=== PATIENT | male | born 1965 | race Asian ===

== ENCOUNTER 2018-05-25 11:51 | Outpatient (CLI) | payer OTHER ==
[~2018-05-25 11:51] MED LIST: ASA FREE160 MG PO; LEVEMIR SC; WARF5TAB6 PO; WARFARIN6 MG PO
[2018-05-25] MEDS ORDERED: ELIQUIS5 MG PO (12:12)
[2018-05-25] MEDS ORDERED: INSU100I2 SC (12:12)
[2018-05-25] MEDS ORDERED: INSUINJ20 SC (12:13)
== END 2018-05-25 11:57 | disposition short-term general hospital (02) ==
LOC: AMB 11:51
DX: R07.89 Other chest pain (principal)
CPT/HCPCS: A0425; A0427

== ENCOUNTER 2018-05-25 11:59 | Emergency (ER) | payer OTHER ==
[~2018-05-25] VITALS: Ht 182.9 cm; Wt 129.3 kg
[2018-05-25 12:07] VITALS: TEMP 98.1
[2018-05-25] MEDS ORDERED: ELIQUIS5 MG PO (12:12)
[2018-05-25] MEDS ORDERED: INSU100I2 SC (12:12)
[2018-05-25] MEDS ORDERED: INSUINJ20 SC (12:13)
[2018-05-25 12:22] LABS: PLATELET COUNT 212 K/uL (142-355)
[2018-05-25 12:29] LABS: POTASSIUM 4.4 mmol/L (3.6-5.2); SODIUM 134 mmol/L (136-145)
[2018-05-25 12:51] VITALS: BP 126/80
== END 2018-05-25 13:13 | disposition short-term general hospital (02) ==
LOC: ED 11:59
PROVIDERS: Family Medicine
DX: R07.89 Other chest pain (principal); T82.897A Other specified complication of cardiac prosthetic devices, implants and grafts, initial encounter
CPT/HCPCS: 36415; 80053; 82550; 82553; 84484; 85027; 93005; 99284

== ENCOUNTER 2018-09-13 09:52 | Outpatient (CLI) | payer OTHER ==
[~2018-09-13 09:52] MED LIST changes: +ELIQUIS5 MG PO; +INSU100I2 SC; +INSUINJ20 SC
== END 2018-09-13 09:57 | disposition short-term general hospital (02) ==
LOC: AMB 09:52
DX: R41.82 Altered mental status, unspecified (principal); W18.39XA Other fall on same level, initial encounter; Y93.89 Activity, other specified; Y92.89 Other specified places as the place of occurrence of the external cause
CPT/HCPCS: A0425; A0427

== ENCOUNTER 2018-09-13 10:07 | Emergency (ER) | payer OTHER ==
[~2018-09-13] VITALS: Ht 182.9 cm; Wt 129.3 kg
[2018-09-13 11:00] LABS: POTASSIUM 4.6 mmol/L (3.6-5.2); SODIUM 131 mmol/L (136-145)
[2018-09-13 11:20] LABS: PLATELET COUNT 220 K/uL (142-355)
[2018-09-13 13:54] VITALS: BP 114/60
== END 2018-09-13 13:54 | disposition home or self-care (01) ==
LOC: ED 10:07
PROVIDERS: Emergency Medicine
DX: R07.89 Other chest pain (principal)
CPT/HCPCS: 36415; 80053; 80307; 80320; 81000; 82550; 83880; 84484; 85027; 93005; 99284

== ENCOUNTER 2018-09-13 16:12 | Outpatient (CLI) | payer OTHER | END 2018-09-13 16:23 | disposition short-term general hospital (02) | LOC: AMB 16:12 | DX: T50.901A Poisoning by unspecified drugs, medicaments and biological substances, accidental (unintentional), initial encounter (principal); Y92.018 Other place in single-family (private) house as the place of occurrence of the external cause | CPT/HCPCS: A0425; A0427 ==

== ENCOUNTER 2018-09-13 16:26 | Emergency (ER) | payer OTHER ==
[~2018-09-13] VITALS: Ht 182.9 cm; Wt 129.3 kg
[2018-09-13 17:17] LABS: PLATELET COUNT 193 K/uL (142-355)
[2018-09-13 17:27] LABS: POTASSIUM 3.7 mmol/L (3.6-5.2); SODIUM 135 mmol/L (136-145)
[2018-09-16] MEDS ORDERED: LANTUS100 UNIT/M SC (14:54)
[2018-09-16] MEDS ORDERED: INSUINJ47 SC (14:55)
[2018-09-16] MEDS ORDERED: LEVO-T25 MCG PO (15:42)
[2018-09-16] MEDS ORDERED: GABA400C2 PO (15:42)
[2018-09-16] MEDS ORDERED: CALAN SR120 MG PO (15:42)
[2018-09-16] MEDS ORDERED: PRAMIPEXOLE0.25 MG PO (15:43)
[2018-09-16] MEDS ORDERED: CYCLOBENZAPRINE5 MG PO (15:44)
[2018-09-19 15:50] VITALS: BP 142/87; TEMP 98.7
== END 2018-09-19 15:50 | disposition other institution (70) ==
LOC: ED 16:28
PROVIDERS: Emergency Medicine; Family Medicine
DX: R45.851 Suicidal ideations (principal); T45.2X2A Poisoning by vitamins, intentional self-harm, initial encounter
CPT/HCPCS: 36415; 80048; 80053; 80307; 80320; 80329; 82550; 82553; 82962; 84484; 85027; 93005; 96372; 99285; J1815; J2405

== ENCOUNTER 2018-10-06 23:30 | Outpatient (CLI) | payer OTHER ==
[~2018-10-06 23:30] MED LIST changes: +CALAN SR120 MG PO; +CYCLOBENZAPRINE5 MG PO; +GABA400C2 PO; +INSUINJ47 SC; +LANTUS100 UNIT/M SC; +LEVO-T25 MCG PO; +PRAMIPEXOLE0.25 MG PO
== END 2018-10-06 23:40 | disposition short-term general hospital (02) ==
LOC: AMB 23:30
DX: R07.89 Other chest pain (principal); R11.2 Nausea with vomiting, unspecified
CPT/HCPCS: A0425; A0427

== ENCOUNTER 2018-10-27 22:30 | Emergency (ER) | payer OTHER ==
[~2018-10-27] VITALS: Ht 182.9 cm; Wt 124.7 kg
[2018-10-27 23:54] LABS: PLATELET COUNT 226 K/uL (142-355)
[2018-10-28 00:30] LABS: POTASSIUM 4.4 mmol/L (3.6-5.2); SODIUM 130 mmol/L (136-145)
[2018-10-28 03:17] VITALS: BP 132/72; TEMP 98.3
== END 2018-10-28 03:18 | disposition home or self-care (01) ==
LOC: ED 22:30
PROVIDERS: Family Medicine
DX: E11.65 Type 2 diabetes mellitus with hyperglycemia (principal); M50.323 Other cervical disc degeneration at C6-C7 level
CPT/HCPCS: 36415; 36416; 80053; 81000; 82550; 82947; 82962; 84484; 85027; 93005; 96372; 99283; J1815

== ENCOUNTER 2018-11-26 12:48 | Outpatient (CLI) | payer OTHER ==
[~2018-11-26 12:48] MED LIST changes: +ACET-689 PO
[2018-11-27] MEDS ORDERED: NOVOLOG FL100 UNIT/M SC (08:40)
[2018-11-27] MEDS ORDERED: TRESIBA100 UNIT/M SC (08:46)
== END 2018-11-26 12:54 | disposition short-term general hospital (02) ==
LOC: AMB 12:48
DX: R07.89 Other chest pain (principal); W19.XXXA Unspecified fall, initial encounter; Y92.89 Other specified places as the place of occurrence of the external cause
CPT/HCPCS: A0425; A0427

== ENCOUNTER 2018-11-26 13:06 | Observation (INO) | payer OTHER ==
[~2018-11-26] VITALS: Ht 182.9 cm; Wt 129.8 kg
[2018-11-26] VITALS (17 sets, daily range): BP systolic 116–162; BP diastolic 62–98; TEMP 97.8–98.1
[2018-11-26 13:39] LABS: PLATELET COUNT 201 K/uL (142-355)
[2018-11-26 13:53] LABS: POTASSIUM 3.8 mmol/L (3.6-5.2); SODIUM 138 mmol/L (136-145)
[2018-11-26 22:40] LABS: PARTIAL THROMBOPLASTIN TIME 24.3 SECONDS (24.5-33.6)
[2018-11-27] VITALS (22 sets, daily range): BP systolic 104–156; BP diastolic 53–93; TEMP 97.8–98.1; Ht 182.9 cm; Wt 129.8 kg
[2018-11-27 05:46] LABS: PLATELET COUNT 219 K/uL (142-355)
[2018-11-27 08:07] LABS: POTASSIUM 4.4 mmol/L (3.6-5.2)
[2018-11-27] MEDS ORDERED: NOVOLOG FL100 UNIT/M SC (08:40)
[2018-11-27] MEDS ORDERED: TRESIBA100 UNIT/M SC (08:46)
== END 2018-11-27 14:00 | disposition short-term general hospital (02) ==
LOC: ED 13:06 → ICU 17:20
PROVIDERS: Internal Medicine; ADMIT Family Medicine
DX: R07.89 Other chest pain (principal); G47.33 Obstructive sleep apnea (adult) (pediatric); Z86.711 Personal history of pulmonary embolism; E03.8 Other specified hypothyroidism; E11.42 Type 2 diabetes mellitus with diabetic polyneuropathy; K21.9 Gastro-esophageal reflux disease without esophagitis; M62.82 Rhabdomyolysis; Z95.0 Presence of cardiac pacemaker
CPT/HCPCS: 36415; 80053; 81000; 82550; 82553; 83690; 84484; 85027; 85610; 85730; 93005; 99220; 99284; G0378; J1815; J2175; J2270; J2405